=== PATIENT | female | born 1950 | race Caucasian/White ===

== ENCOUNTER → 2017-08-29 | Outpatient (CLI) | payer MEDICARE ==
--- NOTE | 2017-08-29 16:07 | XR ---
EXAMINATION TYPE: XR chest 2V DATE OF EXAM: 08/29/2017 COMPARISON: None HISTORY: 67-year-old female history of lung disease, bronchitis TECHNIQUE: Frontal and lateral views FINDINGS: Heart is normal size. Mild elongation of the thoracic aorta. Strandy densities in the lower lungs. No consolidation or pleural effusion. Accentuated lower thoracic kyphosis. IMPRESSION: Strandy atelectasis in the lower lungs. No acute process seen.
== END ==
LOC: RADXRYALE 15:39
PROVIDERS: ATTEND Internal Medicine
DX: J98.11 Atelectasis (principal); J68.0 Bronchitis and pneumonitis due to chemicals, gases, fumes and vapors
CPT/HCPCS: 71020

== ENCOUNTER → 2018-04-06 | Outpatient (CLI) | payer MEDICARE ==
--- NOTE | 2018-04-07 07:19 | XR ---
EXAMINATION TYPE: XR knee complete LT DATE OF EXAM: 04/06/2018 CLINICAL HISTORY: Left lateral knee pain after fall TECHNIQUE: Three views of the left knee are obtained. COMPARISON: None. FINDINGS: There is no acute fracture/dislocation evident in left knee. There is moderate medial comp artment arthrosis with small marginal osteophytes, joint space narrowing and tibial plateau sclerosis . Fabella is incidentally noted. The overlying soft tissue appears unremarkable. IMPRESSION: There is no acute fracture or dislocation in the left knee. Moderate medial compartment arthrosis.
== END | disposition home or self-care (01) ==
LOC: RADXRYALE 16:26
PROVIDERS: ATTEND Internal Medicine
DX: M17.12 Unilateral primary osteoarthritis, left knee (principal); S89.92XA Unspecified injury of left lower leg, initial encounter